=== PATIENT | female | born 1980 | race Asian ===

== ENCOUNTER 2016-12-05 16:19 | Emergency (ER) | payer SELFPAY ==
[~2016-12-05] VITALS: Ht 157.5 cm; Wt 53.5 kg
[~2016-12-05 16:19] MED LIST: AMOX500C2 PO; IBP800T PO; OXYC-12 PO; PREN1TAB39 PO; [UNRECOGNIZED DRUG - CODE] PO
[2016-12-05] MEDS ORDERED: ORPHENADRINE 60 MG/2 ML (NORFLEX) AMP IM ONE (18:30)
[2016-12-05] MEDS ORDERED: KETOROLAC 60 MG/2 ML VIAL IM ONE (18:30)
--- NOTE | 2016-12-05 18:45 | ED Back Pain ---
General Chief Complaint: Back Problems Stated Complaint: BACK PAIN Nursing Triage Note: pt c/o upper back pain x 1 week. chronic low back pain due to scoliosis. no known injury Nursing Sepsis Screen: No Definite Risk Source of Information: Patient, Family Exam Limitations: No Limitations History of Present Illness Time Seen by Provider: 18:17 Initial Comments This 36 year old woman presents to the ER with fairly sudden onset of mid thoracic back pain and RUE paresthesia from the elbow to the fingers that started early this morning when she was getting up from a bent position in the yard. The pain is rather severe and she is having difficulty moving. She requires assistance from her . She reports a similar episode of lesser severity 2-3 weeks ago that resolved. She denies any bowel or bladder dysfunction at this time, but she did have an episode of urinary incontinence with her prior episode of back pain. She denies any weakness of the extremities. Pain is limited to the mid thoracic spine and surrounding tissue at this time. It does hurt to breath and she is splinting. She does have a history of scoliosis and has a known lumbar disc problem. This was identified by an MRI performed in [facility] about 3 years ago. She took Advil 400 mg at 08:30 and Tylenol 500 mg after that. This did not provide significant relief. She denies as her LMP was November 24. Review of her chart notes an unremarkable MRI of the brain in 2012. Dr. Melton is her primary care provider. Allergies and Home Medications Allergies Coded Allergies: No Known Drug Allergies (Unverified , 09/08/10) Home Medications Amoxicillin 500 Mg Capsule, 1 EACH PO TID, #20 Ref 0 Prescribed by: NKECHI DUMONT on 07/27/111833 Hydrocodone/Acetaminophen 1 Each Tablet, 1 EACH PO Q4H PRN for PAIN, #10 Prescribed by: SULEMA RUIZ on 12/05/162051 Ibuprofen 800 Mg Tab, 800 MG PO Q6H, #60 (Reported) Prednisone 20 Mg Tab, 20 MG PO DAILY, #4 Prescribed by: SULEMA RUIZ on 12/05/162051 Vits W-Ca,Fe,Fa(<1MG) 1 Each Tablet, 1 EACH PO DAILY, (Reported) Constitutional: no symptoms reported EENTM: no symptoms reported Respiratory: see HPI Cardiovascular: no symptoms reported Gastrointestinal: no symptoms reported Genitourinary: see HPI LMP: Nov 24, 2016 Musculoskeletal: see HPI Skin: no symptoms reported Psychiatric/Neurological: See HPI Past Pcshipk-Tpqibt-Vdvifo Hx Patient Social History Recent Foreign Travel: No Contact w/Someone Who Travel: No Recent Infectious Disease Expo: No Surgeries HX Surgeries: No Respiratory Hx Respiratory Disorders: No Cardiovascular Hx Cardiac Disorders: No Neurological Hx Neurological Disorders: No Reproductive System : No Hx Reproductive Disorders: No Genitourinary Hx Genitourinary Disorders: No Gastrointestinal Hx Gastrointestinal Disorders: No Musculoskeletal Hx Musculoskeletal Disorders: Yes (Lumbar disc disease) Musculoskeletal Disorders: Scoliosis Endocrine Hx Endocrine Disorders: No HEENT HX ENT Disorders: No Cancer Hx Cancer: No Psychosocial Hx Psychiatric Problems: No Integumentary HX Skin/Integumentary Disorder: No Blood Transfusions Hx Blood Disorders: No Physical Exam Vital Signs Vital Sign - Last 12Hours 12/05/16 12/05/16 17:18 21:04 Temp 99.1 Pulse 93 Resp 20 B/P (MAP) 108/82 Pulse Ox 98 Capillary Refill : Less Than 3 Seconds General Appearance: WD/WN, Moderate Distress HEENT: PERRL/EOMI, Normal ENT Inspection Neck: Normal Inspection, Non Tender, Supple Cardiovascular: Regular Rate, Rhythm, No Edema, No Murmur Respiratory: Lungs Clear, Normal Breath Sounds, No Accessory Muscle Use, No Respiratory Distress Gastrointestinal: Non Tender, Soft Back: Vertebral Tenderness (Mid thoracic spine), Other (Mid thoracic paraspinous muscles) Extremity: Normal Inspection Neurologic/Psychiatric: Alert, Oriented x3, No Motor/Sensory Deficits, Normal 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, 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 Norm as Tested Skin: Normal Color, Warm/Dry Progress/Results/Core Measures Results/Orders My Orders Orders - SULEMA ZAPATA MD Ketorolac Injection (Toradol Injection) (12/05/16 18:30) Orphenadrine Injection (Norflex Injectio (12/05/16 18:30) Mri Cervical Spine W/O Contras (12/05/16 18:39) Mri Lumbar Spine W/O Contrast (12/05/16 18:39) Mri Thoracic Spine W/O Con (12/05/16 18:39) Chest Pa/Lat (2 View) (12/05/16 18:45) Rx-Hydrocodone/Apap 5-325 Mg (Rx-Vicodin (12/05/16 21:00) Prednisone Tablet (Deltasone Tablet) (12/05/16 21:00) Medications Given in ED Current Medications Medications Dose Ordered Sig/Malaika Route Start Time Stop Time Status Last Admin Dose Admin Acetaminophen/ Hydrocodone Bitart 1 ea Q4H PRN PO 12/05/16 21:00 12/05/16 21:04 DC 12/05/16 21:03 1 EA Ketorolac Tromethamine 60 mg ONCE ONCE IM 12/05/16 18:30 12/05/16 18:31 DC 12/05/16 18:33 60 MG Orphenadrine Citrate 60 mg ONCE ONCE IM 12/05/16 18:30 12/05/16 18:31 DC 12/05/16 18:33 60 MG Prednisone 20 mg ONCE ONCE PO 12/05/16 21:00 12/05/16 21:01 DC 12/05/16 21:02 20 MG Vital Signs/I&O Vital Sign - Last 12Hours 12/05/16 12/05/16 12/05/16 12/05/16 17:18 18:33 18:33 21:04 Temp 99.1 99.1 99.1 99.1 Pulse 93 91 Resp 20 18 B/P (MAP) 108/82 Pulse Ox 98 Blood Pressure Mean: 91 Progress Note #1: Time: 18:50 Progress Note Patient was treated with IM inject of Toradol and Norflex. Pain was improving. Given the symptoms of RUE paresthesias and the prior episode of urinary incontinence, MRI of the complete spine was felt appropriate. MRI was available and offered. Patient would like to have the MRI performed. She had a prior MRI performed in [place] about 3 years ago which she reports demonstrated lumbar disc disease. Progress Note #2: Progress Note Patient was found to have multiple abnormalities on the MRI at multiple spinal levels. She was advised to seek referral to a child development specialist. In the meantime, she'll be treated with pain medication and prednisone. She had significant improvement with Toradol and Norflex injections and was able to ambulate out of the ER. Her first dose of prednisone was administered in the ER. Turned precautions discussed. Diagnostic Imaging Diagonstic Imaging: MRI Plain Films/CT/US/NM/MRI: c-spine Comments MRI of the cervical spine viewed by me and report reviewed. See report below: NAME: DESTINEE LUCIO MED REC#: [id number] PT STATUS: REG ER : 1980 PHYSICIAN: SULEMA ZAPATA MD ADMIT DATE: 12/05/16/ER Draft Date of Exam:12/05/16 MRI CERVICAL SPINE W/O CONTRAS PROCEDURE: MR imaging cervical spine without contrast. INDICATION: Right hand numbness, worse at night x1 week. Upper back pain x1 week. TECHNIQUE: Multiplanar, multisequence MR imaging of the cervical spine was performed without contrast. FINDINGS: Cervical spinal alignment is relatively anatomic. Cervical vertebral body heights are maintained without concerning geographic lesion. C5-C6, C4-C5, and C6-C7 levels demonstrate posterior spondylitic ridging. Disc and osteophyte formation is present. This results in mild flattening of the ventral thecal sac. This is most noticeable at the C5-C6 level where there is narrowing of the spinal canal to approximately 8 to 9 mm. Prominent osteophytes also appear to be present, perhaps slightly greater on the left. Spinal cord has relatively normal signal intensity. IMPRESSION: Mild posterior spondylitic ridging at C5-C6 and to lesser degree at C4-C5 and C6-C7 levels results in mild spinal canal narrowing and foraminal narrowing, most pronounced at the C5-C6 level. Dictated on workstation # [id number] Dict: 12/05/161930 Trans: 12/05/161936 AS6 [id number] Interpreted by: WILFREDO NUNEZ DO Diagonstic Imaging: MRI Plain Films/CT/US/NM/MRI: other (thoracic spine) Comments MRI of the thoracic spine viewed by me and report reviewed. See report below: NAME: DESTINEE LUCIO [facility] REC#: [id number] PT STATUS: REG ER : 1980 PHYSICIAN: SULEMA ZAPATA MD ADMIT DATE: 12/05/16/ER Draft Date of Exam:12/05/16 MRI THORACIC SPINE W/O CON INDICATION: Right hand numbness, worse at night x1 week. Upper back pain x1 week. Chronic low back pain. TECHNIQUE: Multiplanar and multisequence noncontrast MR imaging was performed of the thoracic spine. COMPARISON: None. FINDINGS: Thoracic spinal alignment is relatively anatomic. Thoracic vertebral body heights are maintained. No concerning geographic lesion. There is asymmetric posterior disc bulge at the T7-T8 level. This does result in mild flattening of the ventral thecal sac. Spinal canal is narrowed to approximately 8 mm. This is to the right of midline. There may be very slight mass effect upon the cord. Remaining disc spaces demonstrate minimal areas of narrowing at the mid levels but otherwise unremarkable. No suggestion for significant foraminal narrowing. IMPRESSION: 1. Mild right paramidline disc bulge at T7-T8 level which results in mild ventrolateral spinal canal narrowing. Dictated on workstation # [id number] Dict: 12/05/161940 Trans: 12/05/161945 AS6 [id number] Interpreted by: WILFREDO NUNEZ DO Diagonstic Imaging: MRI Plain Films/CT/US/NM/MRI: other (lumbar spine) Comments MRI of the lumbar spine viewed by me and report reviewed. See report below: NAME: DESTINEE LUCIO MED REC#: [id number] PT STATUS: REG ER : 1980 PHYSICIAN: SULEMA ZAPATA MD ADMIT DATE: 12/05/16/ER Draft Date of Exam:12/05/16 MRI LUMBAR SPINE W/O CONTRAST PROCEDURE: MRI lumbar spine. INDICATION: Right hand numbness, worse at night x1 week. Upper back pain x1 week. History of chronic low back pain. Episode of incontinence couple of weeks prior. TECHNIQUE: Multiplanar and multisequence noncontrast MR imaging was performed of the lumbar spine. COMPARISON: None FINDINGS: Mild rightward curvature of the lumbar spine is present. There is also slight straightening. Alignment otherwise anatomic. Lumbar vertebral body heights overall fairly well maintained. The exception is slight endplate irregularity at the L4-L5 level favoring degenerative type change. No concerning geographic lesion. Conus terminates at L1 level and unremarkable. L4-L5 level does demonstrate mild loss of disc space height and intrasubstance signal intensity. Very mild broad-based disc bulge is present. There is also ligamentum and facet hypertrophy at this level resulting in moderate trefoil-type spinal canal configuration. Mild effacement of the perineural fat without significant nerve impingement. Remaining disc spaces overall otherwise maintained in their height and signal intensity. No disc bulge. There is mild ligamentum hypertrophy at L5-S1 as well as mild hypertrophy of L3-L4 level without significant canal stenosis. IMPRESSION: 1. Mild rightward curvature of the lumbar spine. 2. Mild degenerative disc disease with posterior disc bulge along with ligamentum facet hypertrophy result in mild to moderate trefoil type spinal canal configuration. Dictated on workstation # [id number] Dict: 12/05/162003 Trans: 12/05/162015 [facility] [id number] Interpreted by: WILFREDO NUNEZ DO Diagonstic Imaging: Xray Plain Films/CT/US/NM/MRI: chest Comments NAME: DESTINEE LUCIO MED REC#: [id number] PT STATUS: REG ER : 1980 PHYSICIAN: SULEMA ZAPATA MD ADMIT DATE: 12/05/16/ER Signed Date of Exam: 12/05/16 CHEST PA/LAT (2 VIEW) INDICATION: Back pain. Mixed chest hurts as well.. TECHNIQUE: Two view chest 8:20 PM CORRELATION STUDY: None FINDINGS: The heart size, mediastinal configuration and pulmonary vasculature are within normal limits. The lungs are clear with no consolidating infiltrate. There is no significant pleural effusion or pneumothorax. Minimal leftward curvature thoracic spine and rightward curvature lumbar spine. IMPRESSION: 1. No radiographic evidence for acute abnormality of the chest. Dictated by: Dictated on workstation # [id number] Dict: 12/05/162038 Trans: 12/05/162038 Interpreted by: WILFREDO NUNEZ DO Electronically signed by: WILFREDO NUNEZ DO 12/05/162038 Departure Impression Impression: Primary Impression: Multilevel degenerative disc disease Additional Impressions: Paresthesia of right arm Thoracic back pain Qualified Codes: M54.6 - Pain in thoracic spine Disposition: 01 HOME, SELF-CARE Condition: Improved Departure-Patient Inst. Decision time for Depature: 20:50 Referrals: SRIRAM MELTON DO (PCP) Primary Care Physician Patient Instructions: Radiculopathy (DC) Add. Discharge Instructions: You may take ibuprofen up to 400 mg every 6 hours as needed for primary pain control. Add hydrocodone for pain not controlled by ibuprofen. Complete 4 days of prednisone as prescribed. Follow-up with your primary care provider and discuss referral to a child development specialist. Return to the ER if symptoms worsen , especially if you develop weakness in your extremities or difficulty controlling bowels or bladder. All discharge instructions reviewed with patient and/or family. Voiced understanding. Scripts Prednisone (Prednisone) 20 Mg Tab 20 MG PO DAILY, #4 TAB Prov: SULEMA ZAPATA MD 12/05/16 Hydrocodone/Acetaminophen (Hydrocodon -Acetaminophen 5-325) 1 Each Tablet 1 EACH PO Q4H Y for PAIN, #10 TAB Prov: SULEMA ZAPATA MD 12/05/16 Copy Copies To 1: SRIRAM MELTON JOSHUA T MD December 05, 2016 18:45
--- NOTE | 2016-12-05 19:38 | Diagnostic Imaging Report ---
PROCEDURE: MR imaging cervical spine without contrast. INDICATION: Right hand numbness, worse at night x1 week. Upper back pain x1 week. TECHNIQUE: Multiplanar, multisequence MR imaging of the cervical spine was performed without contrast. FINDINGS: Cervical spinal alignment is relatively anatomic. Cervical vertebral body heights are maintained without concerning geographic lesion. C5-C6, C4-C5, and C6-C7 levels demonstrate posterior spondylitic ridging. Disc and osteophyte formation is present. This results in mild flattening of the ventral thecal sac. This is most noticeable at the C5-C6 level where there is narrowing of the spinal canal to approximately 8 to 9 mm. Prominent osteophytes also appear to be present, perhaps slightly greater on the left. Spinal cord has relatively normal signal intensity. IMPRESSION: Mild posterior spondylitic ridging at C5-C6 and to lesser degree at C4-C5 and C6-C7 levels results in mild spinal canal narrowing and foraminal narrowing, most pronounced at the C5-C6 level. Dictated by: Dictated on workstation # [id number]
--- NOTE | 2016-12-05 19:46 | Diagnostic Imaging Report ---
INDICATION: Right hand numbness, worse at night x1 week. Upper back pain x1 week. Chronic low back pain. TECHNIQUE: Multiplanar and multisequence noncontrast MR imaging was performed of the thoracic spine. COMPARISON: None. FINDINGS: Thoracic spinal alignment is relatively anatomic. Thoracic vertebral body heights are maintained. No concerning geographic lesion. There is asymmetric posterior disc bulge at the T7-T8 level. This does result in mild flattening of the ventral thecal sac. Spinal canal is narrowed to approximately 8 mm. This is to the right of midline. There may be very slight mass effect upon the cord. Remaining disc spaces demonstrate minimal areas of narrowing at the mid levels but otherwise unremarkable. No suggestion for significant foraminal narrowing. IMPRESSION: 1. Mild right paramidline disc bulge at T7-T8 level which results in mild ventrolateral spinal canal narrowing. Dictated by: Dictated on workstation # [id number]
--- NOTE | 2016-12-05 20:16 | Diagnostic Imaging Report ---
PROCEDURE: MRI lumbar spine. INDICATION: Right hand numbness, worse at night x1 week. Upper back pain x1 week. History of chronic low back pain. Episode of incontinence couple of weeks prior. TECHNIQUE: Multiplanar and multisequence noncontrast MR imaging was performed of the lumbar spine. COMPARISON: None FINDINGS: Mild rightward curvature of the lumbar spine is present. There is also slight straightening. Alignment otherwise anatomic. Lumbar vertebral body heights overall fairly well maintained. The exception is slight endplate irregularity at the L4-L5 level favoring degenerative type change. No concerning geographic lesion. Conus terminates at L1 level and unremarkable. L4-L5 level does demonstrate mild loss of disc space height and intrasubstance signal intensity. Very mild broad-based disc bulge is present. There is also ligamentum and facet hypertrophy at this level resulting in moderate trefoil-type spinal canal configuration. Mild effacement of the perineural fat without significant nerve impingement. Remaining disc spaces overall otherwise maintained in their height and signal intensity. No disc bulge. There is mild ligamentum hypertrophy at L5-S1 as well as mild hypertrophy of L3-L4 level without significant canal stenosis. IMPRESSION: 1. Mild rightward curvature of the lumbar spine. 2. Mild degenerative disc disease with posterior disc bulge along with ligamentum facet hypertrophy result in mild to moderate trefoil type spinal canal configuration. Dictated by: Dictated on workstation # [id number]
--- NOTE | 2016-12-05 20:42 | Diagnostic Imaging Report ---
INDICATION: Back pain. Mixed chest hurts as well.. TECHNIQUE: Two view chest 8:20 PM CORRELATION STUDY: None FINDINGS: The heart size, mediastinal configuration and pulmonary vasculature are within normal limits. The lungs are clear with no consolidating infiltrate. There is no significant pleural effusion or pneumothorax. Minimal leftward curvature thoracic spine and rightward curvature lumbar spine. IMPRESSION: 1. No radiographic evidence for acute abnormality of the chest. Dictated by: Dictated on workstation # [id number]
[2016-12-05] MEDS ORDERED: HYDR-3812 PO (20:52)
[2016-12-05] MEDS ORDERED: PRD20T PO (20:52)
[2016-12-05] MEDS ORDERED: predniSONE 20 MG TAB PO ONE (21:00)
[2016-12-05] MEDS ORDERED: RX-HYDROCODONE/APAP 5/325 MG #4 TAB PK PO PRN (21:00)
[2016-12-05 21:04] VITALS: BP 111/79
== END 2016-12-05 21:04 | disposition home or self-care (01) ==
LOC: EDUNIT# 16:19 → ER 16:21
DX: M51.24 Other intervertebral disc displacement, thoracic region (principal); M51.36 Other intervertebral disc degeneration, lumbar region; M41.9 Scoliosis, unspecified; R20.9 Unspecified disturbances of skin sensation
CPT/HCPCS: 71020; 72141; 72146; 72148; 96372; 99283

== ENCOUNTER 2017-12-21 09:14 | Emergency (ER) | payer BC, OTHER ==
[~2017-12-21] VITALS: Ht 157.5 cm; Wt 59.3 kg
[~2017-12-21 09:14] MED LIST changes: +ACHD5005 PO; +PRD20T PO
--- NOTE | 2017-12-21 11:00 | ED Neurological Problem ---
General Chief Complaint: Dizziness/Syncope Stated Complaint: DIZZINESS, ANXIETY, WATERS Nursing Triage Note: C/O DIZZINESS SINCE YESTERDAY EVEN AT REST. PT. STATES DIZZINESS WORSE WHEN LYING ON R-SIDE. C/O FOREHEAD H/A. C/O NAUSEA ET ABD PAIN WHEN NAUSEATED. PT. IS ALSO ANXIOUS THIS AM D/T NOT KNOWING WHAT IS CAUSING HER SXS. Nursing Sepsis Screen: No Definite Risk Source: patient, family Exam Limitations: no limitations History of Present Illness Date Seen by Provider: December 21, 2017 Time Seen by Provider: 10:47 Initial Comments The patient resists ER by private conveyance with her significant other with a chief complaint that today she woke up when she rolled over onto her right ear she started having dizziness feeling the room spinning. You more times today bring her to her feet because the room spinning make sure off balance. She does not feel pulled any direction nor has she passed out nor nearly "passed out. She 's never had this before. She does take Flonase occasionally for allergies. She is not taking it presently. She has no other significant medical history nor does she take any medicines or rtqj-kgo-bezubrj herbals. She is not on control. She has had no fevers, chills, runny nose, ear pressure or pain, sore throat. She had nausea when the dizziness took hold but the nausea passed. Allergies and Home Medications Allergies Coded Allergies: No Known Drug Allergies (Unverified , 09/08/10) Patient Home Medication List Home Medication List Reviewed: Yes Review of Systems Constitutional: No chills, No diaphoresis; dizziness; No fever, No malaise, No weakness Eyes: Denies Blindness, Denies Blurred Vision, Denies Drainage, Denies Pain, Denies Photophobia Ears, Nose, Mouth, Throat: denies ear pain, denies ear discharge Respiratory: No cough, No short of breath, No wheezing Cardiovascular: No chest pain, No palpitations Gastrointestinal: No abdominal pain, No constipation, No diarrhea; nausea; No vomiting Genitourinary: No discharge, No dysuria : No Musculoskeletal: No back pain, No joint pain Past Crtesla-Uyquol-Pppcpo Hx Patient Social History Alcohol Use: Denies Use Recreational Drug Use: No Smoking Status: Never a Smoker 2nd Hand Smoke Exposure: No Recent Foreign Travel: No Contact w/Someone Who Travel: No Recent Infectious Disease Expo: No Recent Hopitalizations: No Physical Abuse: No Sexual Abuse: No Immunizations Up To Date Tetanus Booster (TDap): Unknown PED Vaccines UTD: Yes Seasonal Allergies Seasonal Allergies: Yes Past Medical History Surgeries: No Respiratory: No Cardiac: No Neurological: No Reproductive Disorders: No Gastrointestinal: No Musculoskeletal: Yes (Lumbar disc disease) Scoliosis Endocrine: No Cancer: No Psychosocial: No Nursing Suicide Risk Score: 0 Integumentary: No Blood Disorders: No Physical Exam Vital Signs Vital Signs - First Documented 12/21/17 10:26 Temp 97.5 Pulse 74 B/P (MAP) 110/77 (88) Pulse Ox 99 O2 Delivery Room Air Capillary Refill : Less Than 3 Seconds General Appearance: WD/WN, no apparent distress HEENT: PERRL/EOMI, pharynx normal, TM abnormal (R) (mucoid effusion), TM abnormal (L) (mucoid effusion) Neck: non-tender, full range of motion, supple, normal inspection Respiratory: chest non-tender, lungs clear, normal breath sounds, no respiratory distress, no accessory muscle use Cardiovascular: normal peripheral pulses, regular rate, rhythm, no edema Gastrointestinal: normal bowel sounds, non tender, soft Back: normal inspection Neurologic/Psychiatric: packing checker II-XII nml as tested, no motor/sensory deficits, alert, normal mood/affect, oriented x 3, other (negative head impulse, nystagmus , gaze deviation, HINTS) Crainal Nerves: normal hearing, normal speech, PERRL Coordination/Gait: normal gait Motor/Sensory: no motor deficit, no sensory deficit, no pronator drift Skin: normal color, warm/dry Progress/Results/Core Measures Results/Orders My Orders Orders - ANGUS CABRERA Orthostatic Vital Signs (Adult (12/21/17 10:54) Vital Signs/I&O 12/21/17 12/21/17 10:26 11:07 Temp 97.5 Pulse 74 68 80 B/P (MAP) 110/77 (88) 101/63 (76) 103/72 (82) 98/69 (79) Pulse Ox 99 O2 Delivery Room Air Blood Pressure Mean: 88 Progress Progress Note #1: Time: 10:58 Progress Note Clinical history of BPPV with negative HINTS suggesting a peripheral cause. She has edema mucoid effusion bilaterally which can be treated with Flonase and Yesi's maneuvers. Her blood pressure is noted to be 97 systolic which is quite possibly normal for a thin 37-year-old female however we will just check a set of orthostatic vitals before getting the Dori-Hallpike maneuver to try and elicit which side is causing her problems. The right side history seems to be most likely. Progress Note #2: Time: 11:14 Progress Note Dori-Hallpike reproduces torsional upward nystagmus on the left side after about 10 seconds and no response on the right side. Orthostatic vital signs are unremarkable. Departure Impression Primary Impression: Benign paroxysmal positional vertigo of left ear Disposition: HOME, SELF-CARE Condition: Stable Departure-Patient Inst. Decision time for Depature: 11:15 Referrals: SRIRAM OLIVARES DO (PCP/Family) Primary Care Physician Patient Instructions: Vertigo (a Type of Dizziness) (DC) Add. Discharge Instructions: Refer to the handouts to do the exercises. Do them 10 times every time you have symptoms. You can may do both sides are just the left side exercises. The symptoms should improve as you do the exercises. If you cannot get your symptoms under control or they persist or or they continue to return over time then you should follow-up with your primary care doctor to consider referral to physical therapy. All discharge instructions reviewed with patient and/or family. Voiced understanding. Copy Copies To 1: SRIRAM OLIVARES TITUS J December 21, 2017 10:59
[2017-12-21 11:07] VITALS: BP_SYST 101; BP_SYST 103; BP_SYST 98; BP_DIAS 63; BP_DIAS 69; BP_DIAS 72
[2017-12-21] MEDS ORDERED: ONDA4TAB11 PO (11:33)
[2017-12-21] MEDS ORDERED: ONDANSETRON 4 MG (ZOFRAN) ORAL DISSOLVE TAB PO ONE (11:45)
[2017-12-21 11:49] VITALS: BP 102/70
== END 2017-12-21 11:49 | disposition home or self-care (01) ==
LOC: EDUNIT# 09:14 → ER 09:16
DX: H81.12 Benign paroxysmal vertigo, left ear (principal)
CPT/HCPCS: 99283

== ENCOUNTER → 2020-10-12 | Outpatient (CLI) | payer BC ==
[~2020-10-12] MED LIST changes: +ONDA4TAB11 PO
--- NOTE | 2020-10-12 12:18 | Diagnostic Imaging Report ---
INDICATION: Routine screening No prior studies are available for comparison. This a baseline study. 2-D and 3-D bilateral screening mammography was performed with CAD. Both breasts are heterogeneously dense, limiting the sensitivity of mammography. There are benign calcifications. No mass or malignant appearing microcalcifications are seen. Axillae are unremarkable. IMPRESSION: BI-RADS Category 2 No mammographic features suspicious for malignancy are identified. ACR BI-RADS Category 2: Benign findings. Result letter will be mailed to the patient. Note: At least 10% of breast cancer is not imaged by mammography. Dictated by: Dictated on workstation # [id number]
== END ==
LOC: RAD 10:44
PROVIDERS: ATTEND Nurse Practitioner Family
DX: Z12.31 Encounter for screening mammogram for malignant neoplasm of breast (principal)
CPT/HCPCS: 77063; 77067

== ENCOUNTER → 2023-01-19 | Outpatient (CLI) | payer OTHER ==
--- NOTE | 2023-01-19 11:41 | Diagnostic Imaging Report ---
INDICATION: Routine screening. COMPARISON: 10/12/2020. TECHNIQUE: 2D and 3D bilateral screening mammography was performed with CAD. FINDINGS: Both breasts are heterogeneously dense, limiting the sensitivity of mammography. The parenchymal pattern is stable. No dominant mass or malignant-appearing microcalcifications are seen. The axillae are unremarkable. There are scattered benign calcifications. IMPRESSION: No mammographic features suspicious for malignancy are identified. ACR BI-RADS Category 2: Benign findings. Result letter will be mailed to the patient. Note: At least 10% of breast cancer is not imaged by mammography. Dictated by: Dictated on workstation # [id number]
== END ==
LOC: RAD 07:58
PROVIDERS: ATTEND Family Medicine
DX: Z12.31 Encounter for screening mammogram for malignant neoplasm of breast (principal); Z01.419 Encounter for gynecological examination (general) (routine) without abnormal findings
CPT/HCPCS: 77063; 77067